=== PATIENT | male | born 2000 | race Native Hawaiian/Other Pacific Islander ===

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

== ENCOUNTER 2021-01-23 13:36 | Emergency (ER) | payer BC, OTHER ==
[2021-01-23 13:55] VITALS: BP 151/76; PULSE 65; RESP 16; TEMP 98.3
[2021-01-23] MEDS ORDERED: CEPHALEXIN 500 MG CAP PO STA (15:16)
[2021-01-23] MEDS ORDERED: predniSONE 20 MG TAB PO STA ×2 (15:16→15:18)
--- NOTE | 2021-01-23 15:20 | ED ---
General Adult HPI - General Chief complaint: Skin/Abscess/Foreign Body Stated complaint: spider bite rt foot Time Seen by Provider: 01/23/21 15:09 Source: patient Mode of arrival: ambulatory Limitations: no limitations - History of Present Illness Initial comments: The patient is a 20-year-old male with no past medical history who presents to the emergency Department with reported bug bite to the right foot. Patient states that he began having some redness, pruritus to the dorsal aspect of his right foot yesterday. He believes that he was bit by a bug. He began having some redness streaking up to his ankle and this concerned him opting him to come into the emergency room for evaluation. He denies history of intravenous drug use. No history of MRSA. He denies any fevers or chills. He has not taken any medications for her symptoms. No other alleviating, precipitating or modifying factors - Related Data Previous Rx's Medication Instructions Recorded Cephalexin [Keflex] 500 mg PO Q6HR 1 Days #12 cap 01/23/21 Loratadine [Claritin] 10 mg PO DAILY #14 tab 01/23/21 diphenhydrAMINE & Zinc Cream 1 applic TOPICAL TID #28 gm 01/23/21 [Benadryl Cream] Allergies Allergy/AdvReac Type Severity Reaction Status Date / Time No Known Allergies Allergy Verified 01/23/21 13:52 Review of Systems ROS Statement: Those systems with pertinent positive or pertinent negative responses have been documented in the HPI. ROS Other: All systems not noted in ROS Statement are negative. Past Medical History Past Medical History: No Reported History History of Any Multi-Drug Resistant Organisms: None Reported Past Surgical History: Orthopedic Surgery Additional Past Surgical History / Comment(s): right hand Past Psychological History: No Psychological Hx Reported Smoking Status: Never smoker Past Alcohol Use History: None Reported Past Drug Use History: Marijuana General Exam Limitations: no limitations Course Vital Signs 01/23/21 13:52 Temperature 98.3 F Pulse Rate 65 Respiratory 16 Rate Blood Pressure 151/76 O2 Sat by Pulse 98 Oximetry Medical Decision Making - Medical Decision Making Upon arrival patient was placed into hallway 21. A thorough history and physical exam was performed. Patient does have a central area of raised edema with surrounding erythema consistent with a bug bite. No fluctuance identified. Patient is given a dose of prednisone for swelling and Keflex in the emergency department. Patient will be placed on Benadryl cream, Keflex and Claritin at home. Patient is to take medications as directed and follow-up with his primary care doctor in 2-4 days. Return to the emergency department for any new or worsening symptoms. Patient was discharged in stable condition Disposition Clinical Impression: Bug bite Disposition: HOME SELF-CARE Condition: Stable Instructions (If sedation given, give patient instructions): Insect Bite or Sting (ED) Additional Instructions: Please follow up with your primary care doctor in 2-4 days. Return to the ED for any new or worsening symptoms Prescriptions: diphenhydrAMINE & Zinc Cream [Benadryl Cream] 1 applic TOPICAL TID #28 gm Loratadine [Claritin] 10 mg PO DAILY #14 tab Cephalexin [Keflex] 500 mg PO Q6HR 1 Days #12 cap Is patient prescribed a controlled substance at d/c from ED?: No Referrals: Wil Lenz MD [Primary Care Provider] - 1-2 days Time of Disposition: 15:19
== END 2021-01-23 15:38 | disposition home or self-care (01) ==
LOC: EC 13:36
DX: S90.861A Insect bite (nonvenomous), right foot, initial encounter (principal); F12.90 Cannabis use, unspecified, uncomplicated; W57.XXXA Bitten or stung by nonvenomous insect and other nonvenomous arthropods, initial encounter
CPT/HCPCS: 99281; J7512